=== PATIENT | male | born 1985 | race Caucasian/White ===

== ENCOUNTER 2020-03-20 00:39 | Day surgery (SDC) | payer OTHER, SELFPAY ==
[2020-03-18 16:00] VITALS: BMI 38.7
--- NOTE | 2020-03-19 17:41 | WPDANESEPP ---
Anes - Eval Pre Procedure Procedure: Anal fistulotomy Operation Date: 03/20/20 09:00 Proposed Procedures p Anal Fistulotomy - Adalid Sofia MD Date/Time: 03/19/20 17:41 Surgeon: Bismark Pre Op Diagnosis: Anal Fistula Patient Data Age: 34 Gender: M Height: 5 ft 9 in Weight: 118.84 kg Allergies Allergy/AdvReac Type Severity Reaction Status Date / Time No Known Allergies Allergy Verified 03/18/20 16:00 Home Medications Medication Instructions Recorded Confirmed Type fluoxetine 20 mg capsule 20 mg PO DAILY #90 cap 02/12/20 03/18/20 Rx dimethyl fumarate 240 mg 240 mg PO BID 02/21/20 03/18/20 History capsule,delayed release Multivitamin Pack 1 packet PO DAILY 03/18/20 History Patient hx anesthesia problems: none Family hx anesthesia problems: none PMFSH Past Medical History Medical History (Updated 03/19/20 @ 17:43 by Yoel Burger CRNA) History of chicken pox History of paresthesia Laceration of left upper arm Lipoma 2017 Multiple sclerosis Sparkle-rectal abscess Renal disease Tobacco abuse Surgical History Surgical History Hx of cholecystectomy Perirectal abscess 2016 Family History Family History Mother Diabetes mellitus Hypertension Grandparent Carcinoma of colon Family history of malignant neoplasm of esophagus Family history of malignant neoplasm of bone Father Patient's father is in good health Social History Social History Smoking status: Heavy tobacco smoker Alcohol intake: current 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
[2020-03-20] VITALS (8 sets, daily range): BP systolic 120–150; BP diastolic 72–98; PULSE 70–91; RESP 12–20; TEMP 36.2–36.6; O2SAT 96–100
--- NOTE | 2020-03-20 07:12 | WPDHPUPDATE1 ---
History and Physical Update Update Date/Time: 03/20/20 07:12 History and Physical has been reviewed, including an updated exam of the patient. There are NO changes in the patient's condition. Risks, benefits, and alternatives have been discussed and questions answered. Patient agrees to proceed with procedure.
[2020-03-20] MEDS: LACTATED RINGERS 1,000 ML 30 ML IV CONT ×2 (07:40→10:01)
--- NOTE | 2020-03-20 08:01 | WPDANESEFPP ---
Anes - Eval Final PreProcedure Day of Procedure 03/20/20 08:01 Patient weight: obese Heart: regular rate and rhythm Lungs: decreased breath sounds Airway: Mallampati scale class II Neurological: alert and oriented Last oral intake: >/= 8 hours ASA classification: III Emergent: no Anesthetic plan: proceed Anesthesia type and monitoring: general ETT and standard monitoring Informed Consent: The patient's anesthetic plan and its attendant risks and benefits were discussed with the patient/family/POA. Questions were solicited and answers provided to the satisfaction of the patient/family/POA.
--- NOTE | 2020-03-20 08:43 | PM.PROC ---
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 He was then turned and placed into prone candace-knife position. The buttocks were taped apart. Prep and drape was carried out. The external opening had pretty much sealed over but I found an area of thin skin and was able to probe into the partially closed external opening. The external opening was located in the right anterior quadrant near the rectum as it had been in the office. I used several different sizes of lacrimal duct probes but eventually found a tract heading straight towards the rectum. It did not have the appearance of a horseshoe fistula. The tract was superficial but did go deep to the lower 3rd of the internal sphincter muscle. Eventually the internal opening, which was also partially sealed, was opened. A probe was passed from the external opening to the internal opening. I opened the overlying tissue with the cautery. I then curetted the tract. I used cautery for some hemostasis. I infiltrated local anesthetic all into the area of the fistulotomy site. I again went over the wound and used cautery to achieve good hemostasis. The wound was dressed with Xeroform gauze, fluffs, and tape. The patient was returned to a supine position, awakened, extubated, and taken to recovery in good condition. Sponge and needle counts were correct x2. 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
[2020-03-20] MEDS: ceFAZolin 2 GM/D5W 50 ML 2 GM/50 ML BAG IVPB (08:55)
== END 2020-03-20 11:30 | disposition home or self-care (01) ==
PROVIDERS: PCP Internal Medicine; Visit Provider Surgery
PROC: (CPT 46270; principal; 2020-03-20 09:00)
DX: K60.3 Anal fistula (principal); G35 Multiple sclerosis; Z72.0 Tobacco use
CPT/HCPCS: 46270; A9270; C9290; J0330; J0690; J2250; J2405; J2704; J3010; J7120

== ENCOUNTER 2020-12-23 15:10 | Emergency (ER) | payer OTHER, SELFPAY ==
[2020-12-23 15:12] VITALS: BP 143/88; PULSE 94; RESP 18; TEMP 36.1; O2SAT 96
[2020-12-23] MEDS: TETANUS,DIPHTHERIA,AC PERTUSSIS ADULT (0.5 ML) BOOSTRIX IM (15:29)
--- NOTE | 2020-12-23 15:30 | ED.GENADULT ---
HPI - General Adult General Chief complaint: Wound/Laceration Stated complaint: Left Index Finger Laceration Time Seen by Provider: 12/23/20 15:15 Source: patient Mode of arrival: ambulatory Limitations: no limitations History of Present Illness HPI narrative: Patient is a 35-year-old male who presents to emergency department for evaluation of a laceration to the distal left index finger was using a knife to open a package when he cut himself patient notes mild aching pain worse with touch and activity denies other injuries or complaints presents in no distress notes that his tetanus is not up-to-date Related Data Home Medications Medication Instructions Recorded Confirmed dimethyl fumarate 240 mg 240 mg PO BID 02/21/20 08/14/20 capsule,delayed release Allergies Allergy/AdvReac Type Severity Reaction Status Date / Time No Known Allergies Allergy Verified 12/23/20 15:15 Review of Systems Review of Systems: Narrative: CONSTITUTIONAL: Denies fever, chills, or sweats. SKIN: Positive for laceration MUSCULOSKELETAL: Denies decreased range of motion or strength NEUROLOGIC: Denies numbness, or weakness. [facility] Past Medical History Medical History (Updated 12/23/20 @ 16:19 by Juaquin Flores PA-C) History of chicken pox History of paresthesia Laceration of left upper arm Lipoma 2018 Multiple sclerosis Sparkle-rectal abscess Renal disease Tobacco abuse Surgical History Surgical History Hx of cholecystectomy Perirectal abscess 2016 Status post anal fissurectomy 03/20/2020 Family History Family History Mother Diabetes mellitus Hypertension Grandparent Carcinoma of colon Family history of malignant neoplasm of esophagus Family history of malignant neoplasm of bone Father Patient's father is in good health Social History Social History Smoking packs per day: 0.5 Smoking cigarettes per day: 10.0 Smoking status: Heavy tobacco smoker Alcohol intake: never 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 HEAD: Normocephalic, atraumatic. EYES: PERRLA and EOMI. ENT: Nares clear, no rhinorrhea or epistaxis. Mucous membranes moist. EXTREMITIES: Normal range of motion. No edema. 1 cm laceration distal phalanx left index finger SKIN: Warm, dry, no rash. NEURO: No focal deficits. Alert and oriented x3. Neurovascularly intact. Capillary refill less than 2 seconds PSYCH: Normal mood and affect. Course Vital Signs Vital signs: Vital Signs Temperature 96.9 F L 12/23/20 15:12 Pulse Rate 94 12/23/20 15:12 Respiratory Rate 18 12/23/20 15:12 Blood Pressure 143/88 H 12/23/20 15:12 Pulse Oximetry 96 12/23/20 15:12 Temperature 96.9 F L 12/23/20 15:12 Pulse Rate 94 12/23/20 15:12 Respiratory Rate 18 12/23/20 15:12 Blood Pressure 143/88 H 12/23/20 15:12 Pulse Oximetry 96 12/23/20 15:12 Procedures Laceration Laceration 1: Date: 12/23/20 Time: 16:19 Site: upper extremity Side (If applicable): left Size (cm): 1 Description: linear Depth: simple, single layer Local Anesthetic: lidocaine 1% Pre-repair: wound explored, irrigated and irrigated extensively ====== Skin Level ====== Skin layer closed with: nylon Size (cm): 5-0 Number of sutures: 5 ====== Subcutaneous Layer ====== ====== Muscle Layer ====== ====== Tendon Layer ====== Medical Decision Making MDM Narrative Medical decision making narrative: Patients injury or pain is consistent with musculoskeletal etiology. No signs of neurological or vascular compromise on exam. Compartments and tisues are soft without sig
[2020-12-23 16:35] VITALS: PULSE 90; RESP 12; O2SAT 99
== END 2020-12-23 16:36 | disposition home or self-care (01) ==
PROVIDERS: Emergency Provider Emergency Medicine; PCP Internal Medicine
DX: S61.211A Laceration without foreign body of left index finger without damage to nail, initial encounter (principal); G35 Multiple sclerosis; N28.9 Disorder of kidney and ureter, unspecified; Z23 Encounter for immunization; W26.0XXA Contact with knife, initial encounter; F17.210 Nicotine dependence, cigarettes, uncomplicated
CPT/HCPCS: 12001; 90471; 90715; 99282

== ENCOUNTER 2021-11-22 19:21 | Emergency (ER) | payer OTHER, SELFPAY ==
[2021-11-22 19:32] VITALS: BP 177/98; PULSE 106; RESP 20; TEMP 36.6; O2SAT 99
--- NOTE | 2021-11-22 22:13 | PC.NURSE ---
Ambulatory out of ED c steady, even, unassisted gait. Speech clear. a/o x 4. no s/s of distress.
== END 2021-11-23 04:00 | disposition left against medical advice (07) ==
PROVIDERS: PCP Internal Medicine
DX: Z53.21 Procedure and treatment not carried out due to patient leaving prior to being seen by health care provider (principal)
CPT/HCPCS: 99199

== ENCOUNTER → 2021-11-27 02:58 | Outpatient (CLI) | payer OTHER, SELFPAY ==
[2021-11-27 20:55] LABS: SARS-CoV-2 RNA PCR Negative
== END ==
PROVIDERS: PCP Internal Medicine; Visit Provider Internal Medicine
DX: G35 Multiple sclerosis (principal); J06.9 Acute upper respiratory infection, unspecified; Z20.822 Contact with and (suspected) exposure to COVID-19
CPT/HCPCS: C9803; U0003; U0005

== ENCOUNTER 2025-03-25 06:51 | Emergency (ER) | payer OTHER, SELFPAY ==
[2025-03-25] VITALS (9 sets, daily range): BP systolic 131–157; BP diastolic 93–121; PULSE 75–91; RESP 14–18; TEMP 36.4; O2SAT 95–100
--- OUTSIDE RECORDS SUMMARY | 2025-03-25 06:53 | XMS_ITS | Clinical Summary ---
Author Organization [facility] [employer] Address [address] [place] [address] Care Team Providers Care Journalism Teacher Name Role Phone Jonnathan Cordero DO Primary Care Provider [phone] Source Comments [facility] [employer],non-owned Affiliates and Associated Physician Practices is amultiple site organization consisting of ambulatory clinics and hospital sitesin [place], [place], [place] and [place]. This disclosure is being madepursuant to the Care Everywhere program and may not contain all information available regarding this patient. Last updated 18.[facility] [employer] Allergies No known active allergies Medications * Be aware that medications may not be up to date on this document. Alwaysverify current medications with the patient. gabapentin (NEURONTIN) 300 MG capsuleIndications :Restless legs syndrome (RLS),Paresthesia Take 1 capsule by mouth at bedtime 90 capsule 4 10/28/20 20 Active Additional Information Patient taking differently:300 mg OralPRN, Reported on 02/19/2023 albuterol HFA (Proventil; Ventolin; Proair) 108 (90 Base) MCG/ACT inhaler INHALE 1 PUFF EVERY 4 HOURS NEEDED FOR SHORTNESS OF BREATH OR WHEEZING 11/11/20 22 Active FLUoxetine (PROzac) 40 MG capsule Take 1 (one) capsule by mouth once daily 12/29/19 23 Active scopolamine (Transderm-Scop) 1 MG patch APPLY 1 PATCH TRANSDERMALLY EVERY 3 DAYS NEEDED FOR MOTION SICKNESS 05/24/20 23 Active varenicline (Chantix Starting Month ) 0.5 MG X 11 & 1 MG X 42 tablets TAKE BY MOUTH PER PACKAGE DIRECTIONS 05/24/20 23 Active fingolimod (Gilenya) 0.5 MG capsuleIndications :Multiple sclerosis (HCC) TAKE ONE CAPSULE BY MOUTH ONCE DAILY. MAY TAKE WITH OR WITHOUT FOOD. STORE AT ROOM TEMPERATURE. 90 capsule 4 12/07/19 25 Active vitamin D3 (Cholecalciferol) 25 MCG (1000 UNITS) tabletIndications: MS (multiple sclerosis) (HCC),Vitamin D deficiency,Chronic fatigue,Sleeping difficulty Take 5 (five) tablets by mouth once daily Active diazePAM (Valium) 10 MG tabletIndications: History of claustrophobia Take 1 tab po 30 min prior to MRI test in March 2024. If patient not fully relaxed 5 min prior to test, can take one more tab. 2 tablet 01/31/20 25 Active Active Problems No known active problems Encounters Date Type Department Care Team Description 02/20/2025 6:19 AM CDT - 02/20/2025 11:59 PM CDT Hospital Encounter [facility] MRI [address] [place] [address] Gem Mcgee MD Discharge Disposition: Home or Self Care 02/20/2025 Travel 01/26/2025 Refill [facility] - Neurology [address] [place] [address] Trista Smith RN MEDICATION REFILL from Last 3 Months Family History Medical History Relation Name Comments Glaucoma Neg Hx Multiple Sclerosis Neg Hx Social History Tobacco Use Types Packs/Day Years Used Date Smoking Tobacco: Every Day Cigarettes 0.5 16 Smokeless Tobacco: Never Tobacco Cessation:Ready to Q uit: Not Asked; Counseling Given: Not Answered Alcohol Use Standard Drinks/Week Comments Not Currently 0 (1 standard drink = 0.6 oz pur e alcohol) Sex and Gender Information Value Date Recorded Sex Assigned at Male 10/19/2021 12:31 AM 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 Legal Sex Male 9:52 AM CDT Gender Identity Male 10/19/2021 12:31 AM 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 Sexual Orientation Straight 10/19/2021 12 :31 AM 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 Last Filed Vital Signs Vital Sign Reading Time Taken Comments Blood Pressure 129/85 12/11/2024 1:54 PM 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 Pulse 90 12/11/2024 1:54 PM 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 Temperature 35.8 C (96.5 F) 11/29/2023 3:56 PM 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 Respiratory Rate 20 11/06/2016 10:16 AM 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 Oxygen Saturation 97% 12/11/2024 1:54 PM 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 Inhaled Oxygen Concentration - - Weight 145.6 kg (321 lb) 12/11/2024 1:54 PM 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 Height 175.3 cm (5' 9 ) 11/29/2023 3:56 PM 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 Body Mass Index 47.4 11/29/2023 3:56 PM 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 Plan of Treatment Upcoming Encounters Date Type Department Care Team (Late st Contact Info) Description 04/02/2025 1:20 PM CDT Office Visit [facility] - Sleep Services [address] [place] [address] Dave Allen MD [address] [place] [address] DIV OF PULMONARY/[place] [address] 06/11/2025 10:00 AM CDT Office Visit [facility] - Neurology [address] [place] [address], [place] [id number] Gem Mcgee MD [address] [place] [address] Health Maintenance Due Date Last Done Comments HIV SCREENING 2000 HEPATITIS C SCREENING 06/12/2003 DTAP/TDAP/TD VACCINES (1 - Tdap) 2004 HEPATITIS B VACCINE (1 of 3 - 19+ 3-dose series) 2004 PNEUMOCOCCAL VACCINE (1 of 2 - PCV) 2004 COVID-19 VACCINE (1 - 2023-2 5 season) 2024 DEPRESSION SCREENING 11/22/2024 INFLUENZA VACCINE (Season Ended) 2025 ZOSTER VACCINE (1 of 2) 2035 HIB VACCINE Aged Out No longer eligi ble based on patient's age to complete this topic HPV VACCINE Aged Out No longer eligi ble based on patient's age to complete this topic MENINGOCOCCAL (Group B) VACC INE SHARED DECISION-MAKING Aged Out No longer eligibl e based on patient's age to complete this topic MENINGOCOCCAL GROUPS A/C/Y/W VACCINE Aged Out No longer eligible b ased on patient's age to complete this topic Procedures Procedure Name Priority Date/Time Associated Diagnosis Comments MRI BRAIN WWO CONTRAST Routine 02/20/2025 7:23 AM CDT MS (multiple sclerosis) ([facility]) from Last 3 Months Results * MRI Brain Wwo Contrast (02/20/2025 7:23 AM CDT) Anatomical Region Laterality Modality Head Magnetic Resonan ce 02/24/2025 3:03 PM CDT Impressions 02/25/2025 12:15 PM CDT IMPRESSION: Compared to the prior MRI of the brain from 01/18/2024: 1.Stable MRI appearance of the brain compared to the prior. 2.Multiple intracranial white matter lesions compatible with the clinical diagnosis of multiple sclerosis. No new T2 lesions and no new enhancing lesions suggest active demyelination. 3.Mild parenchymal volume loss. The report is dictated by Thierno Galvan MD (residential treatment specialist) I, Jayda Chris MD have personally reviewed and interpreted this examination/study. > Interpreting Provider: Jayda Chris MD on 02/25/2025 12:15 PM Narrative 02/25/2025 12:15 PM CDT PROCEDURE: MRI BRAIN WWO CONTRAST, DATE/TIME OF EXAM: 02/20/2025 7:24 AM, LOCATION [facility] INDICATION: G35: MS (multiple sclerosis) ([facility]) ADDITIONAL CLINICAL INFORMATION: Ordering Provider Reason For Exam: Multiple sclerosis. Technologist Note: None. Additional: None. EXAMINATION: Magnetic resonance imaging (MRI) of the brain without and with contrast TECHNIQUE: MRI of the brain was performed prior to and following the uneventful administration of 10 mL Gadavist intravenous contrast according to a demyelination protocol. COMPARISON: MR of the brain from 01/18/2024 FINDINGS: No evidence of acute or chronic hemorrhage is identified. No evidence of acute cerebral infarction is seen. There is mild cerebral volume loss with associated ex vacuo ventricular dilatation. No mass effect or midline shift is seen. There are multiple foci of hyperintensity on T2 and FLAIR within the white matter, compatible with the clinical diagnosis of multiple sclerosis. Focal FLAIR hyperintensity is noted along the undersurface of the corpus callosum. No enhancing lesions are identified to suggest active demyelination. The sella appears grossly stable. Borderline low-lying cerebellar tonsils likely representing mild cerebellar ectopia. The posterior fossa, brainstem, and craniocervical junction appear otherwise grossly unremarkable. Other than mild paranasal sinus disease, the visualized portions of the orbits, paranasal sinuses, and mastoids appear normal. Normal flow voids are demonstrated in the carotid arteries and basilar artery. The calvarium and visualized cervical spine appear normal. Procedure Note Jayda Chris MD - 02/25/2025 PROCEDURE: MRI BRAIN WWO CONTRAST, DATE/TIME OF EXAM: 02/20/2025 7:24AM, LOCATION [facility] INDICATION: G35: MS (multiple sclerosis) ([facility]) ADDITIONAL CLINICAL INFORMATION: Ordering Provider Reason For Exam: Multiple sclerosis. Technologist Note: None. Additional: None. EXAMINATION: Magnetic resonance imaging (MRI) of the brain without andwith contrast TECHNIQUE: MRI of the brain was performed prior to and following the uneventful administration of 10 mL Gadavist intravenous contrastaccording to a demyelination protocol. COMPARISON: MR of the brain from 01/18/2024 FINDINGS: No evidence of acute or chronic hemorrhage is identified. No evidence of acute cerebral infarction is seen. There is mild cerebral volume losswith associated ex vacuo ventricular dilatation. No mass effect or midlineshift is seen. There are multiple foci of hyperintensity on T2 and FLAIRwithin the white matter, compatible with the clinical diagnosis of multiple sclerosis. Focal FLAIR hyperintensity is noted along the undersurface of the corpus callosum. No enhancing lesions are identified to suggestactive demyelination. The sella appears grossly stable. Borderline low-lying cerebellar tonsils likely representing mild cerebellar ectopia. The posterior fossa, brainstem, and craniocervical junction appear otherwise grossly unremarkable. Other than mild paranasal sinus disease, the visualized portions of the orbits, paranasal sinuses, and mastoids appear normal. Normal flow voids are demonstrated in the carotid arteries and basilar artery. Thecalvarium and visualized cervical spine appear normal. IMPRESSION: Compared to the prior MRI of the brain from 01/18/2024: 1.Stable MRI appearance of the brain compared to the prior. 2.Multiple intracranial white matter lesions compatible with theclinical diagnosis of multiple sclerosis. No new T2 lesions and no new enhancing lesions suggest active demyelination. 3.Mild parenchymal volume loss. The report is dictated by Thierno Galvan MD (residential treatment specialist) I, Jayda Chris MD have personally reviewed and interpretedthis examination/study. > Interpreting Provider: Jayda Chris MD on 02/25/2025 12:15 PM Gem Mcgee MD MR ORDERABLES Final Resu lt from Last 3 Months Insurance [employer] Care Teams Journalism Teacher Relationship Specialty Start Date End Date Jonnathan Cordero DO PCP - General 08/23/19
--- OUTSIDE RECORDS SUMMARY | 2025-03-25 06:53 | XMS_ITS | Referral Summary ---
Author Organization [facility] Address [address] [place] [id number] Care Team Providers Care Laminating Machine Operator Name Role Phone Jonnathan Cordero DO Primary Care Provider [phone] Allergies No known active allergies Medications varenicline (CHANTIX) 1 mg tablet Take 1 mg by mouth 2 (two) times a day 2 Active FLUoxetine (PROzac) 40 mg capsule Take by mouth daily 2 Active Gilenya 0.5 mg capsule 2 Active gabapentin (NEURONTIN) 300 mg capsule Take 1 capsule (300 mg total) by mouth nightly 0 Active ALPRAZolam (XANAX) 1 mg tablet 3 Active albuterol HFA (PROVENTIL HFA,VENTOLIN HFA,PROAIR HFA) 90 mcg/actuation inhaler INHALE 1 PUFF EVERY 4 HOURS NEEDED FOR SHORTNESS OF BREATH OR WHEEZING 2 Active Active Problems No known active problems Social History Tobacco Use Types Packs/Day Years Used Date Smoking Tobacco: Light Smoker Personal Safety Answer Date Recorded Getting School Help Needed Not on file 11/13 Sex and Gender Information Value Date Recorded Sex Assigned at Not on file Legal 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 Gender Identity Not on file Sexual Orientation Not on file Last Filed Vital Signs Vital Sign Reading Time Taken Comments Blood Pressure 114/90 02/22/2023 6:03 PM CDT Pulse 81 02/22/2023 6:03 PM CDT Temperature 37.2 C (99 F) 02/22/2023 6:03 PM CDT Respiratory Rate 26 02/22/2023 6:03 PM CDT Oxygen Saturation 97% 02/22/2023 6:03 PM CDT Inhaled Oxygen Concentration - - Weight 130.2 kg (287 lb) 02/22/2023 6:03 PM CDT Height 175.3 cm (5' 9 ) 02/22/2023 6:03 PM CDT Body Mass Index 42.38 02/22/2023 6:03 PM CDT Plan of Treatment Not on file Insurance [address] [id number] Care Teams Laminating Machine Operator Relationship Specialty Start Date End Date Jonnathan Cordero DO PCP - General Internal Medicine 08/31/19
--- OUTSIDE RECORDS SUMMARY | 2025-03-25 06:53 | XMS_ITS | Clinical Summary ---
Author Organization [facility] Address [address] [place] [id number] Care Team Providers Care Outsole Cementer Machine Name Role Phone Jonnathan Cordero DO Primary Care Provider [phone] Allergies No known active allergies Medications varenicline [...] Active Active Problems No known active problems Medical History Medical History Date Comments MS (multiple sclerosis) ([facility]) Social History Tobacco Use Types Packs/Day Years Used Date Smoking Tobacco: Light Smoker Personal Safety Answer Date Recorded Getting School Help Needed Not on file 11/13 Sex and Gender Information Value Date Recorded Sex Assigned at Not on file 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 Gender Identity Not on file Sexual Orientation Not on file Obstetrics History Last Filed Vital Signs Vital Sign Reading [...] 02/22/2023 6:03 PM CDT Plan of Treatment Health Maintenance Due Date Last Done Comments Depression Screening 1985 Hepatitis C Screening 1985 Varicella Vaccines (1 of 2 - 13+ 2-dose series) 1998 Hepatitis B Screening 2003 Regular Well Visit/Exam 18-64 2003 Pneumococcal vaccine <65 (1 of 2 - PCV) 2004 Influenza Vaccine (Season Ended) 2025 DTaP/Tdap/Td Vaccine (2 - Td or Tdap) 03/09/2029 03/09/2019 HPV Vaccines Aged Out No longer eligi ble based on patient's age to complete this topic Insurance [employer] [facility] [id number] [place] [id number] Care Teams Outsole Cementer Machine Relationship Specialty Start Date End Date Jonnathan Cordero DO PCP - General Internal Medicine 08/31/19
[2025-03-25 07:13] LABS: Basophils Percent Auto 0.5 % (0.2-1.2); Eosinophils Absolute Auto 0.1 K/mm3 (0-0.3); Eosinophils Percent Auto 1.5 % (0-4.4); Hemoglobin 16.8 g/dL (14.0-18.0); Immature Granulocyte Absolute 0.03 K/mm3 (0.00-0.031); Immature Granulocyte Percent A 0.5 % (0-0.5); Lymphocytes Absolute Auto 0.79 K/mm3 (0.9-3.2); Lymphocytes Percent Auto 12.1 % (18.3-44.2); Mean Corpuscular HGB Conc 33.6 g/dl (32-36); Mean Corpuscular Hemoglobin 31.4 pg (26-34); Mean Corpuscular Volume 93.5 fl (80-100); Mean Platelet Volume 11.6 fl (7.4-10.4); Monocytes Percent Auto 15.7 % (2.6-8.5); Neutrophils Absolute Auto 4.6 K/mm3 (1.3-6.7); Neutrophils Percent Auto 69.7 % (45.5-73.1); Platelet Count Result 238 k/mm3 (150-375); Red Blood Count 5.35 M/mm3 (4.6-6.20); White Blood Count 6.5 K/mm3 (4.5-10.0)
--- NOTE | 2025-03-25 07:14 | ED_ITS ---
HPI - Nausea/Vomiting/Diarrhea General Chief complaint: Nausea/Vomiting/Diarrhea Stated complaint: n/v Time Seen by Provider: 03/25/25 07:13 Source: patient History of Present Illness HPI Narrative: 39 years old white male came to the ED by private car complaining of vomiting once yesterday morning, and another 1:00 p.m. yesterday, this morning felt diaphoretic and vomited once prior to arrival. Patient started on wegovyr 2-3 months ago. History of multiple sclerosis, anxiety. Last wegovy intake was 4 days ago. Patient is telling me that his notice scab versus take on his back 3 days ago. Currently patient is asymptomatic, denies any skin rash. Related Data Home Medications ?Medication ?Instructions ?Recorded ?Confirmed ?Last Taken ?Type fingolimod 0.5 mg capsule (Gilenya) 0.5 mg PO DAILY 11/24/21 03/25/25 Unknown History cholecalciferol (vitamin D3) 125 125 mcg PO DAILY 08/01/24 03/25/25 Unknown History mcg (5,000 unit) capsule Allergies Allergy/AdvReac Type Severity Reaction Status Date / Time No Known Allergies Allergy Verified 03/25/25 07:01 Review of Systems 2 Review of Systems: All systems reviewed & are unremarkable except as noted in HPI and below PMFSH Past Medical History Medical History Hyperlipidemia Obesity Sparkle-rectal abscess Tobacco abuse Laceration of left upper arm History of chicken pox Lipoma 2018 Renal disease History of paresthesia Multiple sclerosis Surgical History Surgical History Status post anal fissurectomy 03/20/2020 Perirectal abscess 2016 Hx of cholecystectomy Family History Family History Mother Diabetes mellitus Hypertension Grandparent Carcinoma of colon Family history of malignant neoplasm of esophagus Family history of malignant neoplasm of bone Father Patient's father is in good health Social History Social History Smoking packs per day: 0.5 Smoking cigarettes per day: 10.0 Smoking status: Current every day smoker Tobacco type: e-cigarettes/vaping Smokeless tobacco user: chewing tobacco Additional smoking assessment comments: nicotine in vape Alcohol intake: current Lack of Transportation: No Lack of Food: Never True Current Housing: I Have Housing Concerned About Future Housing: No Difficulty Paying Gas/Electric Bills: No Difficulty Paying for Meds: No Currently Unemployed: No Education: High School Diploma/GED Difficulty w/ Childcare or Family Care: No Living arrangements: with family Occupation/Education: occupation 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 Musculoskeletal: Normal range of motion, nontender back Neurologic: Alert and oriented ?3, STAFF EDITOR is normal as tested, no gross motor deficit Course Vital Signs Vital signs: Vital Signs Pulse Rate 91 03/25/25 06:56 Respiratory Rate 16 03/25/25 06:56 Blood Pressure 157/121 H 03/25/25 06:56 Pulse Oximetry 100 03/25/25 06:56 Oxygen Delivery Room Air 03/25/25 06:56 Temperature 36.4 C L 03/25/25 07:05 Pulse Rate 75 03/25/25 09:16 Respiratory Rate 14 03/25/25 09:16 Blood Pressure 135/93 H 03/25/25 09:16 Pulse Oximetry 97 03/25/25 09:16 Oxygen Delivery Room Air 03/25/25 06:56 MDM - Nausea/Vomiting/Diarrhea MDM Narrative Medical decision making narrative: Patient presents with nausea and vomiting, intermittently over the last 48 hours Vital signs showing blood pressure 157/121 otherwise within normal limit Physical examination is unremarkable Differential diagnosis include medication inducing vomiting, Lyme disease is extremely less likely. Blood workup today includes CBC and CMP showed no significant abnormalities In the ED patient received 1 L of normal saline 4 mg of Zofran. Patient is asymptomatic, Diagnosis nausea, vomiting, Lyme disease test is send out Discharged on Zofran and to stop wegovy Differential Diagnosis Differential diagnosis: Likely other (As above) Medical Records Attestation: I reviewed the patient's medical records. Lab Data Attestation: I reviewed the patient's lab results. 03/25/25 07:02 03/25/25 07:26 Labs: Lab Results 03/25/25 03/25/25 03/25/25 Range/Units 07:02 07:26 09:12 WBC 6.5 (4.5-10.0) K/mm3 RBC 5.35 (4.6-6.20) M/mm3 Hgb 16.8 (14.0-18.0) g/dL Hct 50.0 (42.0-52.0) % MCV 93.5 (80-100) fl MCH 31.4 (26-34) pg MCHC 33.6 (32-36) g/dl RDW 13.0 (11.5-14.5) % Plt Count 238 (150-375) k/mm3 MPV 11.6 H (7.4-10.4) fl Immature Gran % (Auto) 0.5 (0-0.5) % Neut % (Auto) 69.7 (45.5-73.1) % Lymph % (Auto) 12.1 L (18.3-44.2) % [place] % (Auto) 15.7 H (2.6-8.5) % Eos % (Auto) 1.5 (0-4.4) % Baso % (Auto) 0.5 (0.2-1.2) % Lymph # (Auto) 0.79 L (0.9-3.2) K/mm3 [place] # (Auto) 1.0 H (0.1-0.6) K/mm3 Eos # (Auto) 0.1 (0-0.3) K/mm3 Baso # (Auto) 0.0 (0.0-0.1) K/mm3 Abs Immat Gran (auto) 0.03 (0.00-0.031) K/mm3 Absolute Neuts (auto) 4.6 (1.3-6.7) K/mm3 Absolute Nucleated RBC 0.000 (0.0-0.012) K/mm3 Nucleated RBC % 0.0 (0.0-0.2) % Sodium 139 (137-145) mmol/L Potassium 4.0 (3.4-5.0) mmol/L Chloride 106 (98-107) mmol/L Carbon Dioxide 26 (22-30) mmol/L Anion Gap 7 (4-12) mmol/L BUN 12 (9-20) mg/dL Creatinine 0.88 (0.7-1.3) mg/dL Estim Creat Clear Calc 134 ml/min Estimated GFR > 60 (59 - ) Glucose 112 H (65-110) mg/dL Calcium 9.5 (8.4-10.2) mg/dL Total Bilirubin 0.7 (0.2-1.3) mg/dL AST 48 (17-59) U/L ALT 87 H (6-50) U/L Alkaline Phosphatase 75 (38-126) U/L Total Protein 7.0 (6.3-8.2) g/dL Albumin 4.4 (3.5-5.1) g/dL Lipase 150 (23-300) U/L Urine Color Pending Urine Appearance Pending Urine pH Pending Ur Specific Honor Pending Urine Protein Pending Urine Glucose (UA) Pending Urine Ketones Pending Ur Blood (Man) Pending Urine Nitrate Pending Urine Bilirubin Pending Urine Urobilinogen Pending Leukocyte Esterase Rfl Pending Lyme IgG 18 kDa Band Pending Lyme IgG 23 kDa Band Pending Lyme IgG 28 kDa Band Pending Lyme IgG 30 kDa Band Pending Lyme IgG 39 kDa Band Pending Lyme IgG 41 kDa Band Pending Lyme IgG 45 kDa Band Pending Lyme IgG 58 kDa Band Pending Lyme IgG 66 kDa Band Pending Lyme IgG 93 kDa Band Pending Lyme IgG Ab (Immblot) Pending Lyme IgM Ab (Immblot) Pending Lyme IgM 23 kDa Band Pending Lyme IgM 39 kDa Band Pending Lyme IgM 41 kDa Band Pending Critical Care Time Critical Care Time Critical Care Time: No Discharge Plan Discharge Clinical Impression: Vomiting Patient Disposition: Home Condition: Improved Instructions: Acute Nausea and Vomiting (ED) Additional Instructions: Return if symptoms are worsening , call your family physician for appointment, take Tylenol as as needed for aches and pain, continue home medications. Stop wegovy Patient Language: Estonian Prescriptions: New ondansetron 4 mg tablet,disintegrating 4 mg PO Q4H 0 Days Qty: 10 0RF Rx Instructions: give 1st dose 30min before emetogenic chemo No Action Gilenya 0.5 mg capsule 0.5 mg PO DAILY albuterol sulfate 90 mcg/actuation HFA aerosol inhaler 1 inh inhalation Q4H PRN (Reason: shortness of breath or wheezing) Qty: 8.5 1RF cholecalciferol (vitamin D3) 125 mcg (5,000 unit) capsule 125 mcg PO DAILY fluoxetine 40 mg capsule 40 mg PO DAILY Qty: 90 3RF Wegovy 1.7 mg/0.75 mL pen injector 1.7 mg subcut WEEKLY Qty: 3 0RF Rx Instructions: administer weeks 13 through 16 of therapy Follow-up/Referrals: Sunshine Bolivar, MOVING CONSULTANT [Primary Care Provider] - Stand Alone Forms: Work/School Release IP
--- OUTSIDE RECORDS SUMMARY | 2025-03-25 07:22 | XMS_ITS | Clinical Summary ---
Author Organization [facility] Address [address] [place] [id number] Care Team Providers Care Embedded Linux Developer Name Role Phone Jonnathan Cordero DO Primary Care Provider +1- [phone] Allergies No known active allergies Medications varenicline [...] Medical History Date Comments MS (multiple sclerosis) ([facility]) Social History Tobacco Use Types Packs/Day Years Used Date Smoking Tobacco: Light Smoker Personal Safety Answer Date Recorded Getting School Help Needed Not on file 11/13 Sex and Gender Information Value Date Recorded Sex Assigned at Not on file 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
--- OUTSIDE RECORDS SUMMARY | 2025-03-25 07:22 | XMS_ITS | Referral Summary ---
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
--- OUTSIDE RECORDS SUMMARY | 2025-03-25 07:22 | XMS_ITS | Clinical Summary ---
Author Organization [facility] [employer] Address [address] [place] [address] Care Team Providers Care Plow Holder Name Role Phone Jonnathan Cordero DO Primary Care Provider [phone] Source Comments [facility] [employer],non-owned Affiliates and Associated Physician Practices is amultiple site organization consisting of ambulatory clinics and hospital sitesin [place], [place], [place] and [place]. This disclosure is being madepursuant to the Care Everywhere program and may not contain all information available regarding this patient. Last updated 18.[facility] [employer] Allergies No known active allergies Medications * [...] - 02/20/2025 11:59 PM CDT Hospital Encounter [facility] MRI [address] [place] [address] Gem Mcgee MD Discharge Disposition: Home or Self Care 02/20/2025 Travel 01/26/2025 Refill [facility] - Neurology [address] [facility] [place] [address] Trista Smith RN MEDICATION REFILL from Last [...] Sex Assigned at Male 10/19/2021 12:31 AM AIRCRAFT ARMORER Legal Sex Male 9:52 AM CDT Gender Identity Male 10/19/2021 12:31 AM AIRCRAFT ARMORER Sexual Orientation Straight 10/19/2021 12 :31 AM AIRCRAFT ARMORER Last Filed Vital Signs Vital Sign Reading Time Taken Comments Blood Pressure 129/85 12/11/2024 1:54 PM AIRCRAFT ARMORER Pulse 90 12/11/2024 1:54 PM AIRCRAFT ARMORER Temperature 35.8 C (96.5 F) 11/29/2023 3:56 PM AIRCRAFT ARMORER Respiratory Rate 20 11/06/2016 10:16 AM AIRCRAFT ARMORER Oxygen Saturation 97% 12/11/2024 1:54 PM AIRCRAFT ARMORER Inhaled Oxygen Concentration - - Weight 145.6 kg (321 lb) 12/11/2024 1:54 PM AIRCRAFT ARMORER Height 175.3 cm (5' 9 ) 11/29/2023 3:56 PM AIRCRAFT ARMORER Body Mass Index 47.4 11/29/2023 3:56 PM AIRCRAFT ARMORER Plan of Treatment Upcoming Encounters Date Type Department Care Team (Late st Contact Info) Description 04/02/2025 1:20 PM CDT Office Visit [facility] - Sleep Services [address] [place] [address] Dave Allen MD [address] [place] [address] DIV OF PULMONARY/[place] [address] 06/11/2025 10:00 AM CDT Office Visit [facility] - Neurology [address] [place] [address], [place] [phone] Gem Mcgee MD [address] [place] [address] Health Maintenance Due Date Last Done Comments [...] 02/20/2025 7:23 AM CDT MS (multiple sclerosis) ([facility]) from Last 3 Months Results * MRI [...] report is dictated by Thierno Galvan MD (vice president diversity) I, Jayda Chris MD have personally reviewed and interpreted this examination/study. > Interpreting Provider: Jayda Chris MD on 02/25/2025 12:15 PM Narrative 02/25/2025 12:15 PM CDT PROCEDURE: MRI BRAIN WWO CONTRAST, DATE/TIME OF EXAM: 02/20/2025 7:24 AM, LOCATION [facility] INDICATION: G35: MS (multiple sclerosis) ([facility]) ADDITIONAL CLINICAL INFORMATION: Ordering Provider Reason For [...] CONTRAST, DATE/TIME OF EXAM: 02/20/2025 7:24AM, LOCATION [facility] INDICATION: G35: MS (multiple sclerosis) ([facility]) ADDITIONAL CLINICAL INFORMATION: Ordering Provider Reason For [...] report is dictated by Thierno Galvan MD (vice president diversity) I, Jayda Chris MD have personally reviewed and interpretedthis examination/study. > Interpreting Provider: Jayda Chris MD on 02/25/2025 12:15 PM Gem Mcgee MD MR ORDERABLES Final Resu lt from Last 3 Months Insurance [employer] Care Teams Plow Holder Relationship Specialty Start Date End Date Jonnathan Cordero DO PCP - General 08/23/19
[2025-03-25] MEDS: ONDANSETRON INJ 4 MG/2 ML VIAL IV PUSH (07:30)
[2025-03-25 07:48] LABS: Alanine Aminotransferase 87 U/L (6-50); Albumin Level 4.4 g/dL (3.5-5.1); Alkaline Phosphatase 75 U/L (38-126); Anion Gap 7 mmol/L (4-12); Aspartate Amino Transferase 48 U/L (17-59); Bilirubin,Total 0.7 mg/dL (0.2-1.3); Blood Urea Nitrogen 12 mg/dL (9-20); Calcium 9.5 mg/dL (8.4-10.2); Carbon Dioxide 26 mmol/L (22-30); Chloride 106 mmol/L (98-107); Estimated CRCL calculation 134 ml/min; Estimated Glomerular Filt Rate > 60; Glucose 112 mg/dL (65-110); Lipase 150 U/L (23-300); Sodium 139 mmol/L (137-145)
[2025-03-25] MEDS: SODIUM CHLORIDE 0.9% IV 1,000 ML 999 ML IV CONT (08:21)
[2025-03-25 09:32] LABS: Add Urine Microscopic? YES; Appearance Urine Clear (Clear); Bacteria Urine None Seen /hpf; Bilirubin Urine Negative (Negative); Blood Urine Negative (Negative); Color Urine Dark Yellow (Yellow); Glucose Urine UA Negative (Negative); Ketones Urine Trace mg/dL (Negative); Leukocyte Esterase Ur Negative LEU/UL (Negative); Nitrate Urine Negative (Negative); Non Pathogenic Casts 0-2; Protein Urine Trace mg/dL (Negative); RBC Urine 0-2 /hpf (0-2); Specific Grav Ur 1.022 (1.001-1.035); Squamous Epithelial Cell Urine None Seen /hpf (Few); Urobilinogen Urine 0.2 mg/dL (<2.0); WBC Urine 0-5 /hpf (0-3); pH Urine 6.5 (5.0-9.0)
[2025-03-27 13:27] LABS: Lyme Disease Ab (IgM), Blot NEGATIVE (NEGATIVE); Lyme Disease Ab(IgG), Blot NEGATIVE (NEGATIVE)
== END 2025-03-25 09:53 | disposition home or self-care (01) ==
PROVIDERS: Emergency Medicine; Emergency Provider Emergency Medicine; PCP Nurse Practitioner
DX: R11.10 Vomiting, unspecified (principal); F17.290 Nicotine dependence, other tobacco product, uncomplicated; F17.220 Nicotine dependence, chewing tobacco, uncomplicated; G35 Multiple sclerosis; E78.5 Hyperlipidemia, unspecified; E66.9 Obesity, unspecified; Z68.41 Body mass index [BMI] 40.0-44.9, adult
CPT/HCPCS: 36415; 80053; 81001; 83690; 85025; 86617; 96361; 96374; 99284; J2405; J7030

== ENCOUNTER 2025-07-15 09:20 | Emergency (ER) | payer OTHER, SELFPAY ==
[2025-07-15] VITALS (7 sets, daily range): BP systolic 120–145; BP diastolic 75–94; PULSE 80–82; RESP 16; TEMP 36.8; O2SAT 95–99
--- NOTE | ~2025-07-15 | CT_ITS ---
EXAMINATION: CT abdomen pelvis wo con DATE: 07/15/2025 10:20 INDICATION: Bilateral flank pain TECHNIQUE: Computed tomography (CT) of the abdomen and pelvis was performed without intravenous contrast. The dose-length product was 726.58 mGy-cm. No prior studies for comparison. COMPARISON: CT dated 02/13/2018. FINDINGS: Lung bases unremarkable. Heart size normal. No significant pleural or pericardial effusion. No significant vascular abnormality. No lymphadenopathy. The liver, spleen, pancreas, kidneys are unremarkable. There is diffuse bilateral adrenal enlargement. No discrete mass identified. Status post cholecystectomy. Nonobstructive bowel gas pattern. No renal/ureteral stones are seen. No free air or free fluid. No acute osseous abnormality. IMPRESSION: 1. Interval development of diffuse bilateral adrenal enlargement without definite discrete mass. Differential diagnosis includes adrenal hyperplasia, infiltrative disorders such as amyloidosis, infectious etiologies such as tuberculosis or adrenal colitis and neoplasm including metastatic disease and l ymphoma. Recommend clinical correlation with endocrine evaluation. Consider infectious workup. If there is oncologic concern, correlation with pet/CT scan should be considered. Reviewed, dictated and finalized at location O. IMPRESSION: 1. Interval development of diffuse bilateral adrenal enlargement without defini te discrete mass. Differential diagnosis includes adrenal hyperplasia, infiltra tive disorders such as amyloidosis, infectious etiologies such as tuberculosis or adrenal colitis and neoplasm including metastatic disease and lymphoma. Deven mmend clinical correlation with endocrine evaluation. Consider infectious sabas p. If there is oncologic concern, correlation with pet/CT scan should be consid ered.
--- OUTSIDE RECORDS SUMMARY | 2025-07-15 09:22 | XMS_ITS | Encounter Summary ---
Author Organization [facility] Address [address] [facility] [place] [address] Care Team Providers Care Dry Primer Powder Blender Name Role Phone Jonnathan Cordero DO Primary Care Provider Encounter Details Date Type Department Care Team (Late st Contact Info) Description 06/25/2025 Results Follow-Up [facility] - Neurology [address] [place] [phone] Gem Mcgee MD [address] [place] [address] Social History Tobacco Use Types Packs/Day Years Used Date Smoking Tobacco: Every Day Cigarettes 1 23.6 Started: 2001 Smokeless Tobacco: Never Alcohol Use Standard Drinks/Week Comments Yes 1 (1 standard drink = 0.6 oz pur e alcohol) occ Sex and Gender Information Value Date Recorded Sex Assigned at Male 10/19/2021 12:31 AM ROPEMAN Legal Sex Male 9:52 AM CDT Gender Identity Male 10/19/2021 12:31 AM ROPEMAN Sexual Orientation Straight 10/19/2021 12 :31 AM ROPEMAN 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 Not on file Not on file Not on file Not on file Not on file Not on file 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 Not on file Not on file documented as of this encounter Plan of Treatment Upcoming Encounters Date Type Department Care Team (Late st Contact Info) Description 07/31/2025 8:00 PM CDT Appointment [facility] - [facility] [address] [facility] [address] [place] [address] Dave Allen MD [address] [facility] [address] [place] [phone] 12/10/2025 10:30 AM ROPEMAN Office Visit [facility] - Neurology [address] [facility] [place] [phone] Gem Mcgee MD [address] [place] [address] documented as of this encounter Visit Diagnoses Not on filedocumented in this encounter Care Teams Dry Primer Powder Blender Relationship Specialty Start Date End Date Jonnathan Cordero DO PCP - General 08/23/19 documented as of this encounter
--- OUTSIDE RECORDS SUMMARY | 2025-07-15 09:22 | XMS_ITS | Clinical Summary ---
Author Organization [facility] Address [address] [place] [phone] Care Team Providers Care Is Technician Name Role Phone Jonnathan Cordero DO Primary Care Provider +1- [phone] Allergies No known active allergies Medications varenicline [...] Medical History Date Comments MS (multiple sclerosis) Social History Tobacco Use Types Packs/Day Years Used Date Smoking Tobacco: Light Smoker Personal Safety Answer Date Recorded Getting School Help Needed Not on file 11/13 Sex and Gender Information Value Date Recorded Sex Assigned at Not on file 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 Gender Identity Not on file Sexual Orientation Not on file Obstetrics History Last Filed Vital Signs Vital Sign Reading Time Taken Comments Blood Pressure 114/90 02/22/2023 6:03 PM CDT Pulse 81 02/22/2023 6:03 PM CDT Temperature 37.2 C (99 F) 02/22/2023 6:03 PM CDT Respiratory Rate 02/22/2023 6:03 PM CDT Oxygen Saturation 97% 02/22/2023 6:03 PM CDT Inhaled Oxygen Concentration - - Weight 130.2 kg (287 lb) 02/22/2023 6:03 PM CDT Height 175.3 cm (5' 9) 02/22/2023 6:03 PM CDT Body Mass Index 42.38 02/22/2023 6:03 PM CDT Plan of Treatment Health Maintenance Due Date Last Done Comments Depression Screening 1985 Hepatitis C Screening 1985 Varicella Vaccines (1 of 2 - 13+ 2-dose series) 1997 Hepatitis B Screening 2003 Regular Well Visit/Exam 18-64 2003 Pneumococcal vaccine <65 (1 of 2 - PCV) 2004 HPV Vaccines (1 - 3-dose SCDM series) 2012 Influenza Vaccine (#1) 2025 DTaP/Tdap/Td Vaccine (2 - Td or Tdap) 03/09/2029 [facility] [id number] [place] [id number] Care Teams Is Technician Relationship Specialty Start Date End Date Jonnathan Cordero DO PCP - General Internal Medicine 08/31/19
--- OUTSIDE RECORDS SUMMARY | 2025-07-15 09:22 | XMS_ITS | Clinical Summary ---
Author Organization [facility] Address [address] [place] [address] Care Team Providers Care Supervisor Sewer System Name Role Phone Jonnathna Cordero DO Primary Care Provider [phone] Source Comments [facility],non-owned Affiliates and Associated Physician Practices is amultiple site organization consisting of ambulatory clinics and hospital sitesin [place], [place], [place] and [place]. This disclosure is being madepursuant to the Care Everywhere program and may not contain all information available regarding this patient. Last updated 18.[facility] Allergies No known active allergies Medications * Be aware that medications may not be up to date on this document. Alwaysverify current medications with the patient. albuterol HFA (Proventil; Ventolin; Proair) 108 (90 Base) MCG/ACT inhaler INHALE 1 PUFF EVERY 4 HOURS NEEDED FOR SHORTNESS OF BREATH OR WHEEZING 2 Active FLUoxetine (PROzac) 40 MG capsule Take 1 (one) capsule by mouth once daily 3 Active varenicline (Chantix Starting Month ) 0.5 MG X 11 & 1 MG X 42 tablets TAKE BY MOUTH PER PACKAGE DIRECTIONS 3 Active vitamin D3 (Cholecalcifer ol) 25 MCG (1000 UNITS) tabletIndicati ons:MS (multiple sclerosis) (HCC),Vitamin D deficiency,Chr onic fatigue,Sleepi ng difficulty Take 5 (five) tablets by mouth once daily Active Zepbound 2.5 MG/0.5ML injection INJECT 2.5 MG (0.5 ML) SUBCUTANEOUSLY WEEKLY FOR 4 WEEKS 5 Active gabapentin (Neurontin) 300 MG capsuleIndicat ions:Neuropath ic Pain Take one capsule at bedtime. If tolerating well and not experiencing drowsiness increase to one capsule in the morning and one at bedtime. Reasons: Neuropathic Pain 90 capsule 2 5 Active fingolimod (Gilenya) 0.5 MG capsuleIndicat ions:Multiple sclerosis (HCC) TAKE ONE CAPSULE BY MOUTH ONCE DAILY. MAY TAKE WITH OR WITHOUT FOOD. STORE AT ROOM TEMPERATURE. 90 capsule 4 5 Active Active Problems Problem Noted Date Diagnosed Date Relapsing remitting multiple sclerosis Encounters Date Type Department Care Team Description 07/11/2025 Travel 06/25/2025 Results Follow-Up [facility] - Neurology [address] [place] [phone] Gem Mcgee MD 06/11/2025 11:13 AM CDT - 06/11/2025 11:59 PM CDT Hospital Encounter [facility] [address] [place] [address] Jonnathan Cordero, DO Discharge Disposition: Home or Self Care 06/11/2025 10:00 AM CDT Office Visit [facility] - Neurology [address] [place] [phone] Gem Mcgee MD MS (multiple sclerosis) (HCC) (Primary Dx); Multiple sclerosis (HCC) 06/11/2025 Travel 05/22/2025 Orders Only [facility] - Sleep Services [address] [place] [address] Dave Allen MD from Last 3 Months Family History Medical History Relation Name Comments Glaucoma Neg Hx Multiple Sclerosis Neg Hx Social History Tobacco Use Types Packs/Day Years Used Date Smoking Tobacco: Every Day Cigarettes 1 23.6 Started: 2001 Smokeless Tobacco: Never Tobacco Cessation:Ready to Q uit: Yes Alcohol Use Standard Drinks/Week Comments Yes 1 (1 standard drink = 0.6 oz pur e alcohol) occ Sex and Gender Information Value Date Recorded Sex Assigned at Male 10/19/2021 12:31 AM TURN DOWN ATTENDANT Legal Sex Male 9:52 AM CDT Gender Identity Male 10/19/2021 12:31 AM TURN DOWN ATTENDANT Sexual Orientation Straight 10/19/2021 12 :31 AM TURN DOWN ATTENDANT 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 Not on file Not on file Not on file Not on file Not on file Not on file Not on file 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 Not on file Not on file Last Filed Vital Signs Vital Sign Reading Time Taken Comments Blood Pressure 137/96 06/11/2025 10:08 AM CDT Pulse 79 06/11/2025 10:08 AM CDT Temperature 35.8 C (96.5 F) 11/29/2023 3:56 PM TURN DOWN ATTENDANT Respiratory Rate 20 11/06/2016 10:16 AM TURN DOWN ATTENDANT Oxygen Saturation 98% 06/11/2025 10:08 AM CDT Inhaled Oxygen Concentration - - Weight 122 kg (269 lb) 06/11/2025 10:08 AM CDT Height 175.3 cm (5' 9) 06/11/2025 10:08 AM CDT Body Mass Index 39.72 06/11/2025 10:08 AM CDT Plan of Treatment Upcoming Encounters Date Type Department Care Team (Late st Contact Info) Description 07/31/2025 8:[address] [facility] - Sleep Lab [address] [facility] [address] [place] [address] Dave Allen MD [address] [facility] [address] [place] [phone] 12/10/2025 10:30 AM TURN DOWN ATTENDANT Office Visit [facility] - Neurology [address] [facility] [place] [phone] Gem Mcgee MD [address] [place] [address] Health Maintenance Due Date Last Done Comments LIPID TESTING 1985 HIV SCREENING 2000 HEPATITIS C SCREENING 06/12/2003 DTAP/TDAP/TD VACCINES (1 - Tdap) 2004 HEPATITIS B VACCINE (1 of 3 - 19+ 3-dose series) 2004 PNEUMOCOCCAL VACCINE (1 of 2 - PCV) 2004 HPV VACCINE (1 - 3-dose SCDM series) 2012 COVID-19 VACCINE (1 - season) 2024 DEPRESSION SCREENING 11/22/2024 INFLUENZA VACCINE (#1) 2025 SCREENING FOR DIABETES 06/11/2028 , 12/11/2024, 02/19/2023, Additional history exists ZOSTER VACCINE (1 of 2) 2035 HIB VACCINE Aged Out No longer eligi ble based on patient's age to complete this topic MENINGOCOCCAL (Group B) VACCINE SHARED DECISION-MAKING Aged Out No longer eligible based on patient's age to complete this topic MENINGOCOCCAL GROUPS A/C/Y/W VACCINE Aged Out No longer eligible based on patient's age to complete this topic Procedures Procedure Name Priority Date/Time Associated Diagnosis Comments COMPREHENSIVE METABOLIC PANEL Routine 06/11/2025 11:31 AM CDT MS (multiple sclerosis) (HCC) CBC W AUTO DIFFERENTIAL Routine 06/11/2025 11:31 AM CDT MS (multiple sclerosis) (HCC) VARICELLA ZOSTER PCR Routine 06/11/2025 11:31 AM CDT MS (multiple sclerosis) (HCC) VITAMIN D 25-HYDROXY 05/22/2025 8:43 AM CDT VITAMIN B12 05/22/2025 8:43 AM CDT METHYLMALONIC ACID BLOOD 05/22/2025 8:43 AM CDT IRON + TIBC PANEL 05/22/2025 8:4 3 AM CDT LAB RESULTS ORDER 05/22/2025 from Last 3 Months Results * VARICELLA ZOSTER PCR (06/11/2025 11:31 AM CDT) [facility] Varicella zoster Virus PCR Not Detected 06/13/2025 8:10 AM CDT [facility] ([facility]) Comment: NOT DETECTED - A negative result does not rule out the presence of PCR inhibitors in the patient specimen or assay specific nucleic acid in concentrations below the level of detection by the assay. INTERPRETIVE INFORMATION: Varicella-Zoster Virus by PCR This test was developed and its performance characteristics determined by [facility]. It has not been cleared or approved by the US Food and Drug Administration. This test was performed in a CLIA certified laboratory and is intended for clinical purposes. Performed By: [place] [address] Business Account Specialist: Fred Gentile MD, PhD CLIA Number: [id number] Varicella zoster Virus Source Plasma 06/13/2025 8:10 AM CDT [facility]) Microbiology BLOOD SPECIMEN / Unknown Collection / Unknown 06/11/2025 11:31 AM CDT 06/11/2025 11:36 AM CDT Gem Mcgee MD LAB - MICROBIOLOGY ORDERAB LES Final Result [facility]) [address] [place] [address] * (ABNORMAL) CBC W/ DIFFERENTIAL (06/11/2025 11:31 AM CDT) [facility] WBC 5.6 4.0 - 10.7 x10E9/L 06/11/2025 12:45 PM CDT [facility] RBC Count 5.02 4.30 - 5.80 x10E12/L 06/11/2025 12:45 PM CDT [facility] Hemoglobin 15.7 13.3 - 17.5 g/dL 06/11/2025 12:45 PM CDT [facility] Hematocrit 43.6 38.7 - 51.1 % 06/11/2025 12:45 PM CDT [facility] MCV 86.9 80.0 - 98.0 fL 06/11/2025 12:45 PM [facility] MCH 31.3 26.7 - 33.6 pg 06/11/2025 12:45 PM [facility] MCHC 36.0 31.7 - 36.3 g/dL 06/11/2025 12:45 PM [facility] RDW-CV 13.2 11.3 - 14.8 % 06/11/2025 12:45 PM [facility] Platelet Count 237 150 - 420 x10E9/L 06/11/2025 12:45 PM [facility] MPV 11.7(H) 7.8 - 11.4 fL 06/11/2025 12:45 PM [facility] Neutrophil % 66.9 41.0 - 74.0 % 06/11/2025 12:45 PM [facility] Lymphocyte % 13.3(L) 17.0 - 47.0 % 06/11/2025 12:45 PM [facility] Monocyte % 17.7(H) 3.0 - 11.0 % 06/11/2025 12:45 PM [facility] Eosinophil % 1.1 0.0 - 7.0 % 06/11/2025 12:45 PM [facility] Basophil % 0.5 0.0 - 1.6 % 06/11/2025 12:45 PM [facility] Immature Granulocytes % 0.5 0.0 - 1.0 % 06/11/2025 12:45 PM [facility] Neutrophil Absolute 3.77 1.60 - 7.50 x10E9/L 06/11/2025 12:45 PM [facility] Lymphocyte Absolute 0.75(L) 1.00 - 4.40 x10E9/L 06/11/2025 12:45 PM [facility] Monocyte Absolute 1.00 0.15 - 1.00 x10E9/L 06/11/2025 12:45 PM [facility] Eosinophil Absolute 0.06 0.00 - 0.60 x10E9/L 06/11/2025 12:45 PM [facility] Basophil Absolute 0.03 0.00 - 0.13 x10E9/L 06/11/2025 12:45 PM [facility] Blood BLOOD SPECIMEN / Unknown Lab Venipuncture / Unknown 06/11/2025 11:31 AM CDT 06/11/2025 11:44 AM CDT Gem Mcgee MD LAB - HEMATOLOGY ORDERABLE S Final Result [facility] [address] [place] [address], [facility] [phone] * (ABNORMAL) COMPREHENSIVE METABOLIC PANEL (06/11/2025 11:31 AM CDT) BUN 12 7 - 26 mg/dL 06/11/2025 12:44 PM [facility] Creatinine 0.90 0.71 - 1.16 mg/dL 06/11/2025 12:44 PM [facility] Sodium 140 136 - 145 mmol/L 06/11/2025 12:44 PM [facility] Potassium 4.2 3.5 - 4.5 mmol/L 06/11/2025 12:44 PM [facility] Chloride 113(H) 98 - 107 mmol/L 06/11/2025 12:44 PM [facility] CO2 19(L) 22 - 29 mmol/L 06/11/2025 12:44 PM [facility] Glucose 92 70 - 99 mg/dL 06/11/2025 12:44 PM [facility] Calcium 9.5 8.4 - 10.2 mg/dL 06/11/2025 12:44 PM [facility] Protein Total 7.0 6.0 - 8.3 g/dL 06/11/2025 12:44 PM [facility] Albumin 4.1 3.4 - 5.0 g/dL 06/11/2025 12:44 PM [facility] Bilirubin Total 0.5 0.2 - 1.2 mg/dL 06/11/2025 12:44 PM [facility] Alkaline Phosphatase 71 40 - 150 U/L 06/11/2025 12:44 PM [facility] ALT 67(H) 5 - 55 U/L 06/11/2025 12:44 PM [facility] AST 39(H) 5 - 34 U/L 06/11/2025 12:44 PM [facility] Anion Gap 8 6 - 16 06/11/2025 12:44 PM [facility] BUN/Creatinine Ratio 13 7 - 23 06/11/2025 12:44 PM [facility] Osmolality Calculated 289 275 - 295 mOsm/kg 06/11/2025 12:44 PM [facility] Albumin/Globulin Ratio 1.4 1.1 - 2.3 06/11/2025 12:44 PM [facility] eGFR by CKD-EPI >90 >=90 mL/min/1.7 3 m2 06/11/2025 12:44 PM [facility] Comment:Estimated Glomerular Filtration Rate (eGFR) calculated using the CKD-EPI Creatinine Equation (2020), per the National Kidney Foundation and [place] [employer] of Nephrology recommendations. Blood BLOOD SPECIMEN / Unknown Lab Venipuncture / Unknown 06/11/2025 11:31 AM CDT 06/11/2025 11:44 AM CDT Gem Mcgee MD LAB - CHEMISTRY ORDERABLES Final Result [facility] [address] [place] [address], [facility] [phone] * METHYLMALONIC ACID BLOOD (05/22/2025 8:43 AM CDT) Methylmalonic Acid 98 55 - 335 nmol/L [facility] Comment: Serum methylmalonic acid (MMA) levels are used to diagnose and monitor several rare inborn errors of metabolism, including methylmalonic aciduria. The enzymatic conversion of MMA to succinic acid requires vitamin B12 (adenosyl-cobalamin) as a cofactor. Serum MMA levels are also used for assessing functional vitamin B12 deficiency. Vitamin B12 is essential for neurodevelopment, particularly early in . Undiagnosed maternal vitamin B12 deficiency may be associated with adverse / outcomes, such as neural tube defects and intrauterine growth restriction. [facility] utilized Multi-Modal Decomposition (MMD) analysis to establish first and second trimester- specific MMA reference intervals in , as given below: MMA, First trimester (<13 wks gestation): 58-167 nmol/L MMA, Second trimester (13-23 wks gestation): 63-241 nmol/L This test was developed and its analytical performance characteristics have been determined by [facility]. It has not been cleared or approved by the FDA. This assay has been validated pursuant to the CLIA regulations and is used for clinical purposes. Test Performed at: [facility] [facility] [employer] [place] [address] [place], [place] FABRICIO GARRIDO MD,PHD 05/22/2025 8:43 AM CDT 05/22/2025 8:45 AM CDT Dave Allen MD LAB - CHEMISTRY ORDERABLES Final Result [facility] [address] [place] [address] * VITAMIN D 25-HYDROXY (05/22/2025 8:43 AM CDT) Pathologist [facility] Vitamin D, 25 Hydroxy 69 30 - 100 ng/mL [facility] Comment: Vitamin D Status 25-OH Vitamin D: Deficiency: <20 ng/mL Insufficiency: 20 - 29 ng/mL Optimal: > or = 30 ng/mL For 25-OH Vitamin D testing on patients on D2-supplementation and patients for whom quantitation of D2 and D3 fractions is required, the [facility](TM) 25-OH VIT D, (D2,D3), LC/MS/MS is recommended: order code 49977 (patients >2yrs). See Note 1 Note 1 For additional information, please refer to http://[email or web address]/faq/[email or web address] (This link is being provided for informational/ educational purposes only.) REPORT COMMENT: FASTING:YES Test Performed at: [facility] [address] [place] [address] EMIL BOWIE MD 05/22/2025 8:43 AM CDT 05/22/2025 8:45 AM CDT us Dave Allen MD LAB - CHEMISTRY ORDERABLES Final Result Performing Organization Address [facility] de Phone Number [facility] [address] [place] [address] * IRON + TIBC PANEL (05/22/2025 8:43 AM CDT) Iron 85 50 - 180 mcg/dL [facility] TIBC 305 250 - 425 mcg/dL (calc) [facility] % Saturation 28 20 - 48 % (calc) [facility] Comment: Test Performed at: [facility] [address] EMIL BOWIE MD 05/22/2025 8:43 AM CDT 05/22/2025 8:45 AM CDT us Dave Allen MD LAB - CHEMISTRY ORDERABLES Final Result Performing Organization Address [facility] de Phone Number [facility] [id number] [place] [address] * VITAMIN B12 (05/22/2025 8:43 AM CDT) Vitamin B12 695 200 - 1100 pg/mL [facility] Comment: Test Performed at: [place] [address] EMIL BOWIE MD 05/22/2025 8:43 AM CDT 05/22/2025 8:45 AM CDT Dave Allen MD LAB - CHEMISTRY ORDERABLES Final Result Performing Organization Address [facility] Co de Phone Number [facility] [address] [place] [phone] * LAB RESULTS ORDER (05/22/2025) 05/22/2025 Narrative 05/22/2025 Ordered by an unspecified provider. us Scanned Document LAB - THERAPEUTIC DRUG MONITORI NG ORDERABLES Final Result from Last 3 Months Insurance [employer] Care Teams Supervisor Sewer System Relationship Specialty Start Date End Date Jonnathan Cordero DO PCP - General 08/23/19
[2025-07-15] MEDS: ONDANSETRON INJ 4 MG/2 ML VIAL IV PUSH (09:46)
[2025-07-15 09:48] LABS: Hematocrit 44.9 % (42.0-52.0); Hemoglobin 15.5 g/dL (14.0-18.0); Immature Granulocyte Percent A 0.7 % (0-0.5); Lymphocytes Absolute Auto 1.14 K/mm3 (0.9-3.2); Mean Corpuscular HGB Conc 34.5 g/dl (32-36); Mean Corpuscular Hemoglobin 31.1 pg (26-34); Mean Corpuscular Volume 90.0 fl (80-100); Nucleated Red Blood Cells Absolute Auto 0.000 K/mm3 (0.0-0.012); Nucleated Red Blood Cells Perc 0.0 % (0.0-0.2); Platelet Count Result 257 k/mm3 (150-375); Red Blood Count 4.99 M/mm3 (4.6-6.20); White Blood Count 7.5 K/mm3 (4.5-10.0)
[2025-07-15 09:52] LABS: Add Urine Microscopic? YES; Appearance Urine Clear (Clear); Glucose Urine UA Negative (Negative); Leukocyte Esterase Ur 1+ LEU/UL (Negative); Nitrate Urine Negative (Negative); Non Pathogenic Casts 0-2; Specific Grav Ur 1.016 (1.001-1.035)
[2025-07-15 10:00] LABS: Alanine Aminotransferase 61 U/L (6-50); Albumin Level 4.2 g/dL (3.5-5.1); Alkaline Phosphatase 85 U/L (38-126); Anion Gap 8 mmol/L (4-12); Aspartate Amino Transferase 44 U/L (17-59); Bilirubin,Total 0.7 mg/dL (0.2-1.3); Blood Urea Nitrogen 11 mg/dL (9-20); Calcium 10.3 mg/dL (8.4-10.2); Carbon Dioxide 23 mmol/L (22-30); Chloride 105 mmol/L (98-107); Estimated CRCL calculation 121 ml/min; Estimated Glomerular Filt Rate > 60; Glucose 100 mg/dL (65-110); Potassium 4.3 mmol/L (3.4-5.0); Sodium 136 mmol/L (137-145); Total Protein 7.4 g/dL (6.3-8.2)
[2025-07-15] MEDS: SODIUM CHLORIDE 0.9% IV 1,000 ML 999 ML IV CONT (10:28)
--- NOTE | 2025-07-15 10:49 | ED.GENADULT ---
HPI - General Adult General Chief complaint: Back Pain/Injury Stated complaint: LOWER BACK PAIN X FEW WEEKS,NAUSEA Time Seen by Provider: 07/15/25 09:59 History of Present Illness HPI narrative: Patient 40-year-old gentleman who presents emergency department chief complaint of low back pain patient reports he has been having symptoms for the last 2 weeks reports that he has been on G LP ones including set found was stopped a week ago because he felt as though he was having nausea vomiting and was getting dehydrated from a patient reports no fever but does report that he has had some urinary urgency Related Data Home Medications ?Medication ?Instructions ?Recorded ?Confirmed ?Last Taken ?Type fingolimod 0.5 mg capsule ([employer]) 0.5 mg PO DAILY 11/24/21 06/05/25 Unknown History cholecalciferol (vitamin D3) 125 125 mcg PO DAILY 08/01/24 06/05/25 Unknown History mcg (5,000 unit) capsule B-complex with vitamin C 1 tablet PO DAILY 04/30/25 06/05/25 Unknown History Allergies Allergy/AdvReac Type Severity Reaction Status Date / Time No Known Allergies Allergy Verified 07/15/25 09:20 Review of Systems Review of Systems: A 10 system review of systems was completed on the patient and is negative except for what is stated in the HPI. Nursing and ancillary documentation was reviewed. [facility] Past Medical History Medical History Hyperlipidemia Obesity Sparkle-rectal abscess Tobacco abuse Laceration of left upper arm History of chicken pox Lipoma 2018 Renal disease History of paresthesia Multiple sclerosis Surgical History Surgical History Status post anal fissurectomy 03/20/2020 Perirectal abscess 2016 Hx of cholecystectomy Family History Family History Mother Diabetes mellitus Hypertension Grandparent Carcinoma of colon Family history of malignant neoplasm of esophagus Family history of malignant neoplasm of bone Father Patient's father is in good health Social History Social History Smoking packs per day: 0.5 Smoking cigarettes per day: 10.0 Smoking status: Current every day smoker Tobacco type: e-cigarettes/vaping Smokeless tobacco user: chewing tobacco Additional smoking assessment comments: nicotine in vape Alcohol intake: current Lack of Transportation: No Lack of Food: Never True Current Housing: I Have Housing Concerned About Future Housing: No Difficulty Paying Gas/Electric Bills: No Difficulty Paying for Meds: No Currently Unemployed: No Education: High School Diploma/GED Difficulty w/ Childcare or Family Care: No Living arrangements: with family Occupation/Education: occupation 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 HEAD: Normocephalic, atraumatic. EYES: PERRLA and EOMI. ENT: Nares clear, no rhinorrhea or epistaxis. Mucous membranes moist. NECK: Supple. CHEST: Clear to auscultation. No respiratory distress. HEART: Regular rate and rhythm. No murmur heard. Normal peripheral pulses. ABDOMEN: Soft, nontender, nondistended, normal active bowel sounds. EXTREMITIES: Normal range of motion. No edema. SKIN: Warm, dry, no rash. NEURO: No focal deficits. Alert and oriented x3. PSYCH: Normal mood and affect. Course Vital Signs Vital signs: Vital Signs Temperature 36.8 C 07/15/25 09:32 Pulse Rate 80 07/15/25 09:32 Respiratory Rate 16 07/15/25 09:32 Blood Pressure 145/94 H 07/15/25 09:32 Pulse Oximetry 98 07/15/25 09:32 Oxygen Delivery Room Air 07/15/25 09:32 Temperature 36.8 C 07/15/25 09:32 Pulse Rate 80 07/15/25 09:32 Respiratory Rate 16 07/15/25 09:32 Blood Pressure 120/90 07/15/25 10:31 Pulse Oximetry 97 07/15/25 10:31 Oxygen Delivery Room Air 07/15/25 09:32 Medical Decision Making [facility] Narrative Medical decision making narrative: Differential diagnosis includes pyelonephritis, UTI, intra-abdominal infection, ureterolithiasis, Laboratory studies were obtained the patient showed normal CBC CMP showed a sodium 136 renal function was within normal limits urinalysis showed 1+ leukocyte esterase 11-[address] scan of the abdomen pelvis showed no obstructing stone there was bilateral adrenal hypertrophy the patient has been on G LP 1 patient was instructed to follow-up with his primary care provider Vital Signs Vital Signs: Vital Signs Temperature 36.8 C 07/15/25 09:32 Pulse Rate 80 07/15/25 09:32 Respiratory Rate 16 07/15/25 09:32 Blood Pressure 145/94 H 07/15/25 09:32 Pulse Oximetry 98 07/15/25 09:32 Oxygen Delivery Room Air 07/15/25 09:32 Temperature 36.8 C 07/15/25 09:32 Pulse Rate 80 07/15/25 09:32 Respiratory Rate 16 07/15/25 09:32 Blood Pressure 120/90 07/15/25 10:31 Pulse Oximetry 97 07/15/25 10:31 Oxygen Delivery Room Air 07/15/25 09:32 Lab Data 07/15/25 09:41 07/15/25 09:41 Labs: Lab Results 07/15/25 Range/Units 09:41 WBC 7.5 (4.5-10.0) K/mm3 RBC 4.99 (4.6-6.20) M/mm3 Hgb 15.5 (14.0-18.0) g/dL Hct 44.9 (42.0-52.0) % MCV 90.0 (80-100) fl MCH 31.1 (26-34) pg MCHC 34.5 (32-36) g/dl RDW 12.6 (11.5-14.5) % Plt Count 257 (150-375) k/mm3 MPV 10.6 H (7.4-10.4) fl Immature Gran % (Auto) 0.7 H (0-0.5) % Neut % (Auto) 64.6 (45.5-73.1) % Lymph % (Auto) 15.2 L (18.3-44.2) % Crisp % (Auto) 18.0 H (2.6-8.5) % Eos % (Auto) 1.1 (0-4.4) % Baso % (Auto) 0.4 (0.2-1.2) % Lymph # (Auto) 1.14 (0.9-3.2) K/mm3 Crisp # (Auto) 1.4 H (0.1-0.6) K/mm3 Eos # (Auto) 0.1 (0-0.3) K/mm3 Baso # (Auto) 0.0 (0.0-0.1) K/mm3 Abs Immat Gran (auto) 0.05 H (0.00-0.031) K/mm3 Absolute Neuts (auto) 4.9 (1.3-6.7) K/mm3 Absolute Nucleated RBC 0.000 (0.0-0.012) K/mm3 Nucleated RBC % 0.0 (0.0-0.2) % Sodium 136 L (137-145) mmol/L Potassium 4.3 (3.4-5.0) mmol/L Chloride 105 (98-107) mmol/L Carbon Dioxide 23 (22-30) mmol/L Anion Gap 8 (4-12) mmol/L BUN 11 (9-20) mg/dL Creatinine 0.90 (0.7-1.3) mg/dL Estim Creat Clear Calc 121 ml/min Estimated GFR > 60 (59 - ) Glucose 100 (65-110) mg/dL Calcium 10.3 H (8.4-10.2) mg/dL Total Bilirubin 0.7 (0.2-1.3) mg/dL AST 44 (17-59) U/L ALT 61 H (6-50) U/L Alkaline Phosphatase 85 (38-126) U/L Total Protein 7.4 (6.3-8.2) g/dL Albumin 4.2 (3.5-5.1) g/dL Urine Color Yellow (Yellow) Urine Appearance Clear (Clear) Urine pH 7.0 (5.0-9.0) Ur Specific Mineral 1.016 (1.001-1.035) Urine Protein Trace (Negative) mg/dL Urine Glucose (UA) Negative (Negative) mg/dL Urine Ketones Negative (Negative) mg/dL Ur Blood (Man) Negative (Negative) Urine Nitrate Negative (Negative) Urine Bilirubin Negative (Negative) Urine Urobilinogen 1.0 (<2.0) mg/dL Leukocyte Esterase Rfl 1+ H (Negative) HILDA/UL Urine RBC 0-2 (0-2) /hpf Urine WBC 11-20 H (0-3) /hpf Ur Squamous Epith Cells None seen (Few) /hpf Urine Bacteria None seen /hpf Urine Casts 0-2 Discharge Plan Discharge Clinical Impression: Urinary tract infection, Acute flank pain, Adrenal hypertrophy Patient Disposition: Home Condition: Stable Instructions: Antibiotic Form, Urinary Tract Infection in Men (ED), Flank Pain (ED) Additional Instructions: Please follow-up with your primary care provider. The CT scan shows that your adrenal glands are enlarged. This could be related to the medications you have been on or could have other etiologies. It is recommended that you follow-up with your primary care as she may need additional testing in the future Patient Language: Tajik Prescriptions: New cephalexin 500 mg capsule 500 mg PO TID 7 Days Qty: 21 0RF ondansetron 4 mg tablet,disintegrating 4 mg PO Q8H PRN (Reason: nausea and vomiting) Qty: 10 0RF No Action Gilenya 0.5 mg capsule 0.5 mg PO DAILY albuterol sulfate 90 mcg/actuation HFA aerosol inhaler 1 inh inhalation Q4H PRN (Reason: shortness of breath or wheezing) Qty: 8.5 1RF cholecalciferol (vitamin D3) 125 mcg (5,000 unit) capsule 125 mcg PO DAILY fluoxetine 40 mg capsule 40 mg PO DAILY Qty: 90 3RF B-complex with vitamin C Tablet 1 tablet PO DAILY ondansetron 4 mg tablet,disintegrating 4 mg PO Q4H 0 Days Qty: 10 0RF Rx Instructions: give 1st dose 30min before emetogenic chemo Zepbound 2.5 mg/0.5 mL pen injector 2.5 mg subcut WEEKLY Qty: 2 0RF Rx Instructions: for 4 weeks Follow-up/Referrals: Jonnathan Cordero DO [Primary Care Provider, Internal Medicine] Time of Disposition: 11:02
[2025-07-15] MEDS: CEPHALEXIN 500 MG CAPSULE PO (11:08)
[2025-07-15] MEDS: KETOROLAC 15 MG/ML VIAL (*BKC) IV PUSH (11:08)
== END 2025-07-15 11:23 | disposition home or self-care (01) ==
PROVIDERS: Emergency Medicine; Emergency Provider Emergency Medicine; PCP Internal Medicine
DX: N39.0 Urinary tract infection, site not specified (principal); E27.8 Other specified disorders of adrenal gland; M54.50 Low back pain, unspecified; E78.5 Hyperlipidemia, unspecified; G35 Multiple sclerosis; F17.210 Nicotine dependence, cigarettes, uncomplicated
CPT/HCPCS: 36415; 74176; 80053; 81001; 85025; 87086; 96361; 96374; 96375; 99284; A9270; J1885; J2405; J7030

== ENCOUNTER 2025-07-17 14:10 | Outpatient (CLI) | payer OTHER, SELFPAY ==
--- NOTE | ~2025-07-17 | XR_ITS ---
EXAMINATION: XR chest 2V 07/17/2025 14:38 INDICATION: Disorder of the adrenal gland. Back pain. PROCEDURE: 2 view chest COMPARISON: No prior studies for comparison. FINDINGS: The lungs are clear. The cardiomediastinal silhouette is within normal limits. There are no pleural effusions. There is no pneumothorax suspected. IMPRESSION: 1: NO ACUTE CARDIOPULMONARY DISEASE. Reviewed, dictated and finalized at location O.
== END 2025-07-17 14:11 | disposition home or self-care (01) ==
LOC: GOSHIMG 14:11
PROVIDERS: PCP Internal Medicine; Visit Provider Nurse Practitioner
DX: E27.8 Other specified disorders of adrenal gland (principal)
CPT/HCPCS: 71046